=== PATIENT | male | born 1980 | race Caucasian/White ===

== ENCOUNTER 2017-06-08 19:22 | Emergency (ER) | payer MEDICAID, OTHER ==
[~2017-06-08] VITALS: Ht 175.3 cm; Wt 82.0 kg
[2017-06-08 19:29] VITALS: Ht 175.3 cm; Wt 82.0 kg
[2017-06-08] MEDS ORDERED: LIDOCAINE 2%/EPI MPF (SDV) 20 ML VIAL INJ STA (22:48)
[2017-06-08] MEDS ORDERED: DIPHTH/TET/ACEL PERTUSS (ADULT) 0.5 ML VIAL IM* ONE (23:30)
--- NOTE | 2017-06-08 23:36 | ERA ---
ER Documentation Chief Complaint Date/Time DATE: 06/08/17 TIME: 23:31 Chief Complaint Laceration from breakin a window 45 mins ago HPI 36-year-old male with a chief complaint of laceration that he sustained while punching a glass window. Patient has no suspicion for foreign bodies. No fever , chills, discharge from the site, dizziness, uncontrolled bleeding. Denies any numbness. Tetanus vaccination unknown.Patient has no other complaints and describes no other associated manifestations. Nursing notes have been reviewed and are consistent with history given. ROS All systems reviewed and are negative except as per history of present illness. Allergies Allergies: Coded Allergies: No Known Allergy (Unverified , 06/08/17) PMhx/Soc Medical and Surgical Hx: pt denies Medical Hx, pt denies Surgical Hx Hx Alcohol Use: Yes Hx Substance Use: No Hx Tobacco Use: Yes Smoking Status: Current every day smoker Physical Exam Vitals Vital Signs Date Time Temp Pulse Resp B/P Pulse Ox O2 Delivery O2 Flow Rate FiO2 06/08/17 19:29 98.8 94 18 134/88 97 Physical Exam Const: Healthy-appearing. Well-nourished. Well-developed. No acute distress. Skin: 3 cm horizontal laceration on the anterior aspect of the lower right forearm. No foreign body appreciated. Skin laceration. just into the subcutaneous tissue. No active bleeding visualized. No petechiae or rashes. No ulcer, induration, jaundice. Good turgor. Head: Normocephalic, Atraumatic. Eyes: Non-injected; No scleral erythema, discharge or foreign body. EOMI and MAYA bilaterally. Ears: Normal External Ears, EACs clear, TM normal bilaterally without erythema. Nose: Normal nose without discharge, septal deviation, or sinus tenderness. Oral: No oral edema visualized. Mucous membranes moist and pink. Neck: No cervical lymphadenopathy, masses or goiter palpated. Trachea midline. Supple ~ No meningismus. Pulm: Good air movement in upper and lower respiratory tracts. No dyspnea, stridor, tripoding or drooling. Clear to auscultation bilaterally. Cardio: Regular rate and rhythm; No murmurs, gallops or rubs auscultated. No JVD grossly observed. Radial and posterior tibial pulses 2+ bilaterally. No cyanosis. Capillary refill less than 2 seconds. Abd: Soft, non tender, non distended. No guarding, masses. Normal bowel sounds. No McBurney's point tenderness. MS: Normal motor strength, normal tone with gross examination. Back: No midline, flank or CVA tenderness. Ext: No cyanosis, edema or palpable cord. Neur: Awake, alert and oriented x3. Neurovascularly intact bilaterally. Psych: Normal Mood and Affect. Results 24 hrs Current Medications Medications (Trade) Dose Ordered Sig/Rashad Route PRN Reason Start Time Stop Time Status Last Admin Dose Admin Lidocaine/ Epinephrine (Xylocaine 2%/ Epi Mpf(Sdv)) 20 ml ONCE STAT INJ 06/08/17 22:48 06/08/17 22:50 DC Diphtheria/ Tetanus/Acell Pertussis (Adacel) 0.5 ml ONCE ONCE IM* 06/08/17 23:30 06/08/17 23:31 Procedures/MDM 36-year-old male presenting with a chief complaint of laceration sustained to his right lower forearm as described in history and physical examination. No foreign body with probation. 4-0 Prolene was used. One horizontal mattress placed. 3 mL of 2% lidocaine with epi was used. No complications. Neurovascularly intact before and after procedure. Vaccination status unknown, thus Tdap was given. Antibiotics are necessary at this time as this was a clean cut. Healthy man with no other medical conditions. I have spoke with the patient regarding their condition and future management. They have verbally responded that they understand their status and treatment plan. The patients vitals are stable, and their current condition is appropriate for discharge. The patient will be given discharge instructions with return precautions. Departure Diagnosis: Primary Impression: Laceration Condition: Stable Patient Instructions: Laceration, All Additional Instructions: You were seen in the emergency department for your laceration which has been closed. Your wound has been cleaned and covered with antibiotic ointment. Please keep this dressing on for 12 hours. After 12 hours take the dressing down and gently clean the wound with ONLY soap and water. If you were given antibiotics, complete the course of treatment as prescribed. Look for signs of infection such as increasing redness, swelling, pain or drainage of pus (yellow/ green fluid). If you see signs of infection, please return to the emergency department immediately. If there are no signs of infection, cover your wound with antibiotic ointment and reapply a dressing. You will form a scar. To keep from scarring too dark, keep your wound covered and out of the sun for the next 6-12 months. Consider using OTC anti-scar creams such as Mederma. Return to the ED for a wound check in 2 days and again for suture removal in 7-10 days. JORGE ALEXIS PA-C Jun 08, 2017 23:36
== END 2017-06-09 00:17 | disposition home or self-care (01) ==
LOC: FTE 19:22
DX: S51.819A Laceration without foreign body of unspecified forearm, initial encounter (principal); F17.210 Nicotine dependence, cigarettes, uncomplicated; W25.XXXA Contact with sharp glass, initial encounter; Y92.9 Unspecified place or not applicable; Z23 Encounter for immunization
CPT/HCPCS: 12002; 90471; 90715; Z7502; Z7610